=== PATIENT | female | born 1965 | race American Indian/Alaskan Native ===

== ENCOUNTER 2016-10-07 22:47 | Emergency (ER) | payer MEDICAID ==
[2016-10-08 00:46] LABS: Basophils % (Auto) 0.6 % (0.0-1.8); Eosinophils % (Auto) 2.1 % (0.0-4.3); Hematocrit 38.4 % (30.3-42.9); Mean Corpuscular HGB Conc 34 % (30-34); Mean Corpuscular Hemoglobin 31 pg (28-32); Mean Corpuscular Volume 91 fl (79-97); Platelet Count 249 K/mm3 (140-440); Red Blood Count 4.23 M/mm3 (3.65-5.03); Red Cell Distribution Width 14.8 % (13.2-15.2); White Blood Count 9.4 K/mm3 (4.5-11.0)
[2016-10-08 01:05] LABS: Anion Gap 19 mmol/L; BUN/Creatinine Ratio 26.25; Blood Urea Nitrogen 21 mg/dL (7-17); Carbon Dioxide 25 mmol/L (22-30); Chloride 98.2 mmol/L (98-107); Glucose 92 mg/dL (65-100); Potassium 3.8 mmol/L (3.6-5.0); Sodium 138 mmol/L (137-145)
[2016-10-08 08:29] VITALS: BP 144/97
--- NOTE | 2016-10-08 09:04 | Emergency Department Report ---
ED Lower Extremity HPI - General Chief Complaint: Extremity Problem,Nontraumatic Stated Complaint: FEET SWOLLEN Time Seen by Provider: 10/08/16 07:49 Source: patient Mode of arrival: Ambulatory Limitations: No Limitations - History of Present Illness Initial Comments: 50-year-old female here with complaint of bilateral leg swelling and pain worsening over the last couple days. She states she noticed the swelling over the last 2 days. Her feet are edematous and painful. It hurts to walk. She is no history of DVT and has never had a blood clot in the past. She does not have any chest pain or shortness of breath. She has pain that extends up into her hamstrings. Describes the pain is intermittent burning. MD Complaint: leg injury -: Gradual Injury: Leg: Right, Left (bilateral edema) Severity: mild Improves With: nothing - Related Data Previous Rx's Medication Instructions Recorded Last Taken Type Furosemide [Lasix TAB] 40 mg PO QDAY #3 tablet 10/08/16 Unknown Rx traMADol [Ultram 50 MG tab] 50 mg PO Q4HR PRN #15 tablet 10/08/16 Unknown Rx Allergies Allergy/AdvReac Type Severity Reaction Status Date / Time morphine Allergy Itching Verified 10/08/16 00:24 ED Review of Systems ROS: Stated complaint: FEET SWOLLEN Other details as noted in HPI Comment: All other systems reviewed and negative Constitutional: denies: chills, fever Eyes: denies: eye pain, eye discharge, vision change ENT: ear pain. denies: throat pain Respiratory: denies: cough, shortness of breath, wheezing Cardiovascular: denies: chest pain, palpitations Endocrine: no symptoms reported Gastrointestinal: denies: abdominal pain, nausea, diarrhea Genitourinary: denies: urgency, dysuria, discharge Musculoskeletal: denies: back pain, joint swelling, arthralgia Skin: denies: rash, lesions Neurological: denies: headache, weakness, paresthesias Psychiatric: denies: anxiety, depression Hematological/Lymphatic: denies: easy bleeding, easy bruising ED Past Medical Hx - Past Medical History Previous Medical History?: Yes Hx Hypertension: Yes Hx Psychiatric Treatment: Yes (Bipolar, Anxiety, Schizophrenia) - Surgical History Past Surgical History?: Yes Additional Surgical History: Rt foot - Family History Family history: no significant - Social History Smoking Status: Current Every Day Smoker Substance Use Type: None - Medications Home Medications: Home Medications Medication Instructions Recorded Confirmed Last Taken Type Furosemide [Lasix TAB] 40 mg PO QDAY #3 tablet 10/08/16 Unknown Rx traMADol [Ultram 50 MG tab] 50 mg PO Q4HR PRN #15 tablet 10/08/16 Unknown Rx ED Physical Exam - General Limitations: No Limitations General appearance: alert, in no apparent distress - Head Head exam: Present: atraumatic, normocephalic - Eye Eye exam: Present: normal appearance, PERRL, EOMI - ENT ENT exam: Present: mucous membranes moist - Neck Neck exam: Present: normal inspection - Respiratory Respiratory exam: Present: normal lung sounds bilaterally. Absent: respiratory distress, wheezes, rales - Cardiovascular Cardiovascular Exam: Present: regular rate, normal rhythm. Absent: systolic murmur, diastolic murmur, rubs, gallop - GI/Abdominal GI/Abdominal exam: Present: soft, normal bowel sounds. Absent: distended, tenderness - Extremities Exam Extremities exam: Present: normal inspection, tenderness, normal capillary refill, pedal edema. Absent: calf tenderness - Back Exam Back exam: Present: normal inspection - Neurological Exam Neurological exam: Present: alert, oriented X3 - Psychiatric Psychiatric exam: Present: normal affect, normal mood - Skin Skin exam: Present: warm, dry, intact, normal color. Absent: rash ED Course Vital Signs 10/07/16 10/08/16 23:30 07:40 Temperature 97.9 F 97.7 F Pulse Rate 87 92 H Respiratory 18 13 Rate Blood Pressure 137/100 144/97 [Right] O2 Sat by Pulse 98 99 Oximetry ED Lower Extremity MDM - Lab Data Result diagrams: 10/08/16 00:11 10/08/16 00:11 Laboratory Results - last 24 hr 10/08/16 10/08/16 10/08/16 00:11 00:11 00:11 WBC 9.4 RBC 4.23 Hgb 13.0 Hct 38.4 MCV 91 MCH 31 MCHC 34 RDW 14.8 Plt Count 249 Lymph % (Auto) 24.8 Johnston % (Auto) 8.6 H Eos % (Auto) 2.1 Baso % (Auto) 0.6 Lymph # 2.3 Johnston # 0.8 Eos # 0.2 Baso # 0.1 Seg Neutrophils % 63.9 Seg Neutrophils # 6.0 ESR VBG pH Sodium 138 Potassium 3.8 Chloride 98.2 Carbon Dioxide 25 Anion Gap 19 BUN 21 H Creatinine 0.8 Estimated GFR > 60 BUN/Creatinine Ratio 26.25 Glucose 92 Lactic Acid Calcium 10.0 Troponin T < 0.010 C-Reactive Protein 0.10 NT-Pro-B Natriuret Pep 204.2 HCG, Qual Negative 10/08/16 10/08/16 10/08/16 00:11 00:11 00:11 WBC RBC Hgb Hct MCV MCH MCHC RDW Plt Count Lymph % (Auto) Johnston % (Auto) Eos % (Auto) Baso % (Auto) Lymph # Johnston # Eos # Baso # Seg Neutrophils % Seg Neutrophils # ESR 17 VBG pH 7.372 Sodium Potassium Chloride Carbon Dioxide Anion Gap BUN Creatinine Estimated GFR BUN/Creatinine Ratio Glucose Lactic Acid 0.70 Calcium Troponin T C-Reactive Protein NT-Pro-B Natriuret Pep HCG, Qual - Medical Decision Making Patient is a 50-year-old female here with bilateral pedal edema. She complains of diffuse pain in her legs. She does have some mild 1-2+ edema in the legs. Ultrasounds were negative for DVT. Labs look otherwise unremarkable. Plan discharge home with a couple days of oral Lasix. Portions of this chart were dictated with dictation software. There may be dictation errors contained within this note. Critical care attestation.: If time is entered above; I have spent that time in minutes in the direct care of this critically ill patient, excluding procedure time. ED Disposition Clinical Impression: Pedal edema Disposition: DC-01 TO HOME OR SELFCARE Is pt being admited?: No Condition: Stable Instructions: Leg Edema (ED) Additional Instructions: Follow-up with her primary care doctor this week Prescriptions: Furosemide [Lasix TAB] 40 mg PO QDAY #3 tablet traMADol [Ultram 50 MG tab] 50 mg PO Q4HR PRN #15 tablet PRN Reason: Pain Referrals: BROOKS HORAN NP [Primary Care Provider] - 3-5 Days
--- NOTE | 2016-10-08 09:25 | XRay Report ---
Chest 2 views: History: Shortness of breath. Findings: Borderline cardiomegaly. Trachea is midline. No consolidation, pneumothorax or pleural effusion. Impression: No acute cardiopulmonary findings.
== END 2016-10-08 12:25 | disposition home or self-care (01) ==
LOC: ED 22:47
DX: R60.0 Localized edema (principal); I10 Essential (primary) hypertension; F31.9 Bipolar disorder, unspecified; F41.9 Anxiety disorder, unspecified; F20.9 Schizophrenia, unspecified; F17.200 Nicotine dependence, unspecified, uncomplicated; Z88.5 Allergy status to narcotic agent
CPT/HCPCS: 36415; 71020; 80048; 82140; 82805; 83880; 84484; 84703; 85025; 85652; 86140; 93005; 93010; 93970